=== PATIENT | male | born 1990 | race Caucasian/White ===

== ENCOUNTER → 2016-11-01 | Outpatient (CLI) | payer MEDICAID ==
[~2016-11-01] MED LIST: AUGMENTIN 875-1 EACH PO; CLEOCIN HCL300 MG PO
--- NOTE | 2016-11-01 12:19 | RADIOLOGY REPORT PS360 ---
[id number] (RING)-3 VIEWS CLINICAL INDICATION: Follow-up fracture FU FX 4TH FINGER ORDERING PHYSICIAN: FAN LAGUNAS MD PATIENT AGE: 26 years COMPARISON: 10/05/2016 FINDINGS: Status post ORIF middle phalanx fracture of the fourth digit with [address]. Fracture line is still visible nondisplaced and nonangulated. Fracture lines are somewhat less apparent. IMPRESSION: Healing middle phalanx fracture of the fourth digit status post ORIF
== END ==
LOC: RAD 08:49
DX: S62.624D Displaced fracture of middle phalanx of right ring finger, subsequent encounter for fracture with routine healing (principal)